=== PATIENT | male | born 1950 | race African-American/Black ===

== ENCOUNTER 2017-12-30 02:40 | Emergency (ER) | payer SELFPAY ==
[~2017-12-30] VITALS: Ht 162.6 cm; Wt 56.0 kg
[2017-12-30] MEDS ORDERED: TETANUS, DIPHTHERIA, PERTUSSIS VAC/PF 0.5ML (>7YR OLD) IM ONE (03:15)
[2017-12-30] MEDS ORDERED: LIDOCAINE HCL 1% 20ML VIAL (Pyxis) INJ MC ONE (03:15)
[2017-12-30] MEDS ORDERED: IBUPROFEN 600MG TABLET PO ONE (03:15)
[2017-12-30] MEDS ORDERED: LIDOCAINE HCL 1%/EPI 1:200,000 30 ML VIAL MC ONE (03:15)
[2017-12-30] MEDS ORDERED: LIDOCAINE HCL/PF 1% 10 MG/ML 5ML VIAL IJ NR (03:45)
[2017-12-30 05:48] VITALS: BP 127/75
== END 2017-12-30 05:55 | disposition home or self-care (01) ==
LOC: ER 03:14
DX: S01.112A Laceration without foreign body of left eyelid and periocular area, initial encounter (principal); E11.9 Type 2 diabetes mellitus without complications; I10 Essential (primary) hypertension; W19.XXXA Unspecified fall, initial encounter; Y93.89 Activity, other specified; Y92.012 Bathroom of single-family (private) house as the place of occurrence of the external cause; Y99.8 Other external cause status
CPT/HCPCS: 12014; 70450; 70486; 90471; 90715; 99284; J3490; X7700; Z7610